=== PATIENT | female | born 1960 | race Caucasian/White ===

== ENCOUNTER 2018-03-17 14:35 | Emergency (ER) | payer OTHER ==
[2018-03-17 15:26] LABS: Absolute Lymphocytes (CBC) 1.6 K/uL (0.7-4.9); Absolute Monocytes 0.5 K/uL (0.1-1.3); Absolute Neutrophil 3.5 K/uL (1.8-8.0); Basophils % 0.9 % (0-1.3); Eosinophils % 4.5 % (0-4.4); Hematocrit 43.4 % (36.0-45.0); Lymphocytes % 27.3 % (15.3-44.8); MCH 30.1 pg (27.0-35.0); MCV 88.3 fL (80-100); Monocytes % 9.1 % (3.3-12.3); RBC Red Blood Cell Count 4.91 M/uL (3.86-4.86)
--- NOTE | 2018-03-17 15:27 | RAD REPORT ---
EXAM DESCRIPTION: RAD - Chest Single View - 03/17/2018 3:19 pm CLINICAL HISTORY: CHEST PAIN Chest pain. COMPARISON: <Comparisons> FINDINGS: Portable technique limits examination quality. The lungs are grossly clear. The heart is normal in size. No displaced fractures. IMPRESSION: No acute intrathoracic process suspected.
[2018-03-17 15:31] LABS: Protime INR 0.97
[2018-03-17 15:51] LABS: ALT/SGPT 53 U/L (12-78); AST/SGOT 37 U/L (15-37); Albumin 3.9 g/dL (3.4-5.0); Alkaline Phosphatase 62 U/L (45-117); BUN Blood Urea Nitrogen 9 mg/dL (7-18); Bicarbonate 26 mmol/L (21-32); Bilirubin Direct < 0.1 mg/dL (0-0.2); Bilirubin Total 0.2 mg/dL (0.2-1.0); CKMB Creatine Kinase MB < 1.0 ng/mL (0.3-3.6); Creatine Phosphokinase 70 U/L (26-192); Glucose Level 96 mg/dL (74-106); Magnesium 2.2 mg/dL (1.8-2.4); NT PRO-BNP 50 pg/mL (<125); Potassium 3.8 mmol/L (3.5-5.1); Protein, Total 7.5 g/dL (6.4-8.2); Sodium Level 142 mmol/L (136-145)
--- NOTE | 2018-03-17 16:43 | RAD REPORT ---
EXAM DESCRIPTION: VAS - Extrem Venous W Compress Leo - 03/17/2018 4:35 pm CLINICAL HISTORY: PAIN Bilateral leg edema and swelling. COMPARISON: FOOT W OBLIQUES dated 02/04/2011; FOOT W OBLIQUES dated 02/04/2011No comparisons TECHNIQUE: Real-time sonographic interrogation of the left and right lower extremity deep venous sys tems was performed. FINDINGS: Normal compressibility, flow augmentation, phasic flow and spontaneous flow is identified in both the left and right lower extremity deep venous systems. IMPRESSION: No sonographic evidence of left or right lower extremity deep venous thrombosis.
[2018-03-17] MEDS ORDERED: ACETAMINOPHEN 325 MG TABLET ONE (17:51)
--- NOTE | 2018-03-17 18:26 | ER ---
Nurse's Notes [facility] Name: Alejandra Payton Age: 57 yrs Sex: Female : 1960 Arrival Date: 03/17/2018 Time: 14:36 Bed 5 Private MD: Gavin Ulloa C; Vu Mir S Diagnosis: Chest pain, unspecified Presentation: 03/17 14:44 Presenting complaint: Patient states: Chets pain that started 1 hour [employer] while sitting. aj Patient describes pain as continuous radiating to back. Transition of care: patient was not received from another setting of care. Onset of symptoms was March 17, 2018. Risk Assessment: Do you want to hurt yourself or someone else? Patient reports no desire to harm self or others. Initial Sepsis Screen: Does the patient meet any 2 criteria? No. Patient's initial sepsis screen is negative. Does the patient have a suspected source of infection? No. Patient's initial sepsis screen is negative. Care prior to arrival: None. 14:44 Method Of Arrival: Wheelchair 14:44 Acuity: ZE 3 aj Triage Assessment: 14:47 General: Appears in no apparent distress. uncomfortable, Behavior is calm, cooperative, aj appropriate for age. Pain: Complains of pain in chest. Neuro: Level of Consciousness is awake, alert, obeys commands, Oriented to person, place, time, situation, Appropriate for age. Cardiovascular: Reports chest pain. Respiratory: Airway is patent Respiratory effort is even, unlabored, Respiratory pattern is regular, symmetrical. Derm: Skin is intact, is healthy with good turgor, Skin is pink, warm \\T\\ dry. normal. Historical: - Allergies: 14:47 PENICILLINS; aj - Home Meds: 14:47 Protonix 40 mg Oral TbEC 1 tab once daily [Active]; Crestor 5 mg oral tab 1 tab once aj daily [Active]; Toprol XL 50 mg Oral Tb24 1 tab once daily [Active]; Zyrtec 10 mg Oral chew 1 tab once daily [Active]; metformin 500 mg Oral tab 1 tab 2 times per day [Active]; Zoloft 50 mg Oral tab 1 tab once daily [Active]; - PMHx: 14:47 Hyperlipidemia; Hypertension; Diabetes - NIDDM; Depression; aj - PSHx: 14:47 Tummy Tuck; Hysterectomy; back; aj - Immunization history:: Adult Immunizations up to date. - Social history:: Smoking status: Patient/guardian denies using tobacco. - Ebola Screening: : Patient negative for fever greater than or equal to 101.5 degrees Fahrenheit, and additional compatible Ebola Virus Disease symptoms Patient denies exposure to infectious person Patient denies travel to an Ebola-affected area in the 21 days before illness onset No symptoms or risks identified at this time. Screenin:56 Abuse screen: Denies threats or abuse. Denies injuries from another. Nutritional jl7 screening: No deficits noted. Tuberculosis screening: No symptoms or risk factors identified. Fall Risk IV access (20 points). Total Jeffrey Fall Scale indicates No Risk (0-24 pts). Assessment: 14:51 General: Appears in no apparent distress. uncomfortable, Behavior is calm, cooperative, jl7 appropriate for age. Pain: Complains of pain in chest Pain radiates to between shoulders Pain currently is 6 out of 10 on a pain scale. at worst was 8 out of 10 on a pain scale. Quality of pain is described as pressure, Pain began 2 hours ago. Is continuous. Neuro: Level of Consciousness is awake, alert, obeys commands, Oriented to person, place, time, situation. Cardiovascular: Heart tones S1 S2 present Patient's skin is warm and dry. Rhythm is sinus rhythm. Respiratory: Airway is patent Respiratory effort is even, unlabored, Respiratory pattern is regular, symmetrical, Breath sounds are clear bilaterally. Denies shortness of breath. GI: Abdomen is round non-distended, Reports nausea, Patient currently denies diarrhea, vomiting. : No signs and/or symptoms were reported regarding the genitourinary system. EENT: No signs and/or symptoms were reported regarding the EENT system. Derm: Skin is pink, warm \\T\\ dry. petechia noted all over abdomen, pt reports "That's been there for years.". Musculoskeletal: No signs and/or symptoms reported regarding the musculoskeletal system. 16:00 Reassessment: No changes from previously documented assessment. Patient and/or family jl7 updated on plan of care and expected duration. Pain level reassessed. Patient is alert, oriented x 3, equal unlabored respirations, skin warm/dry/pink. 17:00 Reassessment: Patient and/or family updated on plan of care and expected duration. Pain jl7 level reassessed. Patient is alert, oriented x 3, equal unlabored respirations, skin warm/dry/pink. 17:50 Reassessment: Pt c/o of DAVILA, rated 8/10, states "I think it's because I haven't eaten jl7 anything." FSBG 72 at this time. Diet tray given to pt per pt request. Provider notified, see [facility] for orders. Vital Signs: 14:47 BP 173 / 95; Pulse 78; Resp 14; Pulse Ox 99% on R/A; Weight 73.03 kg; Height 5 ft. 5 aj in. (165.10 cm); 14:51 BP 182 / 93; Pulse 63; Resp 16; Pulse Ox 100% ; Pain 6/10; jl7 15:00 Temp 98.9; jl7 16:00 BP 157 / 81; Pulse 60; Resp 16; Pulse Ox 100% ; jl7 17:00 BP 120 / 58; Pulse 65; Resp 16; Pulse Ox 100% ; jl7 17:54 BP 145 / 89; Pulse 78; Resp 16; Pulse Ox 97% ; Pain 8/10; jl7 18:40 Pain 0/10; jl7 14:47 Body Mass Index 26.79 (73.03 kg, 165.10 cm) ED Course: 14:36 Patient arrived in ED. as 14:36 Gavin Ulloa MD is Private Physician. as 14:36 Vu Mir MD is Private Physician. as 14:40 Tunde Moser, MELVA is Primary Nurse. [facility] 14:45 Triage completed. 14:47 Arm band placed on right wrist. Patient placed in an exam room. EKG completed in triage. Results shown to MD. 14:56 Patient has correct armband on for positive identification. Placed in gown. Bed in low jl7 position. Call light in reach. Side rails up X 1. panel monitor on. Pulse ox on. NIBP on. Warm blanket given. 14:56 Initial lab(s) drawn, by me, sent to lab. Inserted saline lock: 20 gauge in left jl7 antecubital area, using aseptic technique. Blood collected. Patient maintains SpO2 saturation greater than 95% on room air. 14:59 John Panda MD is Attending Physician. kdr 15:18 X-ray completed. Portable x-ray completed in exam room. Patient tolerated procedure la2 well. 15:20 XRAY Chest (1 view) In Process Unspecified. EDMS 16:35 US Extremity Venous W Compression Leo In Process Unspecified. EDMS 17:50 Troponin (emerg Dept Use Only) Sent. jl7 18:25 Gavin Ulloa MD is Referral Physician. kdr 18:39 No provider procedures requiring assistance completed. IV discontinued, intact, jl7 bleeding controlled, No redness/swelling at site. Pressure dressing applied. Administered Medications: 17:53 Drug: Tylenol 650 mg Route: PO; jl7 18:40 Follow up: Pain 0/10 Adult; Response: No adverse reaction; Pain is decreased jl7 Point of Care Testing: Blood Glucose: 17:52 Blood Glucose: 72 mg/dL; jl7 Ranges: Outcome: 18:25 Discharge ordered by . kdr 18:39 Discharged to home ambulatory, with family. jl7 18:39 Condition: stable 18:39 Discharge instructions given to patient, family, Instructed on discharge instructions, follow up and referral plans. medication usage, Demonstrated understanding of instructions, follow-up care, medications, Prescriptions given X 2. 18:40 Patient left the ED. jl7 Signatures: Dispatcher [employer] EDMS Janie Alegre, RN John Weston MD MD kdr Ema Almaguer Jahala, MELVA RN jl7 Mandi Thomson la2
--- NOTE | 2018-03-17 18:27 | EDPHYS ---
Physician Documentation [facility] Name: Alejandra Payton Age: 57 yrs Sex: Female : 1960 Arrival Date: 03/17/2018 Time: 14:36 Bed 5 Private MD: Gavin Ulloa C; Vu Mir S ED Physician John Panda HPI: 03/17 18:40 This 57 yrs old Female presents to ER via Wheelchair with complaints of Chest kdr Pain. 18:40 The patient or guardian reports chest pain that is located primarily in the substernal kdr area, anterior chest wall, bilaterally, chest diffusely. Onset: suddenly, 1 hour(s) ago. The pain radiates to Associated signs and symptoms: Pertinent positives: dizziness, lightheadedness, nausea, Pertinent negatives: abdominal pain, diaphoresis, shortness of breath, syncope, vomiting. The chest pain is described as a pressure, squeezing. Duration: The patient or guardian reports a single episode, that is still ongoing, but improving. Modifying factors: The symptoms are alleviated by nothing. the symptoms are aggravated by nothing. Severity of pain: At its worst the pain was moderate in the emergency department the pain is unchanged. The patient has not experienced similar symptoms in the past. The patient has not recently seen a physician. The patient has also been having intermittent leg cramps and pain in her calf r/l. Historical: - Allergies: 14:47 PENICILLINS; aj - Home Meds: 14:47 Protonix 40 mg Oral TbEC 1 tab once daily [Active]; Crestor 5 mg oral tab 1 tab once aj daily [Active]; Toprol XL 50 mg Oral Tb24 1 tab once daily [Active]; Zyrtec 10 mg Oral chew 1 tab once daily [Active]; metformin 500 mg Oral tab 1 tab 2 times per day [Active]; Zoloft 50 mg Oral tab 1 tab once daily [Active]; - PMHx: 14:47 Hyperlipidemia; Hypertension; Diabetes - NIDDM; Depression; aj - PSHx: 14:47 Tummy Tuck; Hysterectomy; back; aj - Immunization history:: Adult Immunizations up to date. - Social history:: Smoking status: Patient/guardian denies using tobacco. - Ebola Screening: : Patient negative for fever greater than or equal to 101.5 degrees Fahrenheit, and additional compatible Ebola Virus Disease symptoms Patient denies exposure to infectious person Patient denies travel to an Ebola-affected area in the 21 days before illness onset No symptoms or risks identified at this time. ROS: 18:40 Constitutional: Negative for fever, chills, and weight loss, Eyes: Negative for injury, kdr pain, redness, and discharge, Neck: Negative for injury, pain, and swelling, Respiratory: Negative for shortness of breath, cough, wheezing, and pleuritic chest pain, Abdomen/GI: Negative for abdominal pain, nausea, vomiting, diarrhea, and constipation, Back: Negative for injury and pain, : Negative for injury, bleeding, discharge, and swelling, MS/Extremity: Negative for injury and deformity, Skin: Negative for injury, rash, and discoloration, Neuro: Negative for headache, weakness, numbness, tingling, and seizure activity. Psych: Negative for depression, anxiety, suicide ideation, homicidal ideation, and hallucinations, Allergy/Immunology: Negative for hives, rash, and allergies, Endocrine: Negative for neck swelling, polydipsia, polyuria, polyphagia, and marked weight changes, Hematologic/Lymphatic: Negative for swollen nodes, abnormal bleeding, and unusual bruising. 18:40 Cardiovascular: Positive for chest pain, Negative for edema, orthopnea, palpitations, paroxysmal nocturnal dyspnea, acute changes. 18:40 MS/extremity: Positive for pain, bilateral leg cramps. Exam: 18:40 Constitutional: This is a well developed, well nourished patient who is awake, alert, kdr and in no acute distress. Head/Face: Normocephalic, atraumatic. Eyes: Pupils equal round and reactive to light, extra-ocular motions intact. Lids and lashes normal. Conjunctiva and sclera are non-icteric and not injected. Cornea within normal limits. Periorbital areas with no swelling, redness, or edema. Neck: Trachea midline, no thyromegaly or masses palpated, and no cervical lymphadenopathy. Supple, full range of motion without nuchal rigidity, or vertebral point tenderness. No Meningismus. Chest/axilla: Normal chest wall appearance and motion. Nontender with no deformity. No lesions are appreciated. Cardiovascular: Regular rate and rhythm with a normal S1 and S2. No gallops, murmurs, or rubs. Normal PMI, no JVD. No pulse deficits. Respiratory: Lungs have equal breath sounds bilaterally, clear to auscultation and percussion. No rales, rhonchi or wheezes noted. No increased work of breathing, no retractions or nasal flaring. Abdomen/GI: Soft, non-tender, with normal bowel sounds. No distension or tympany. No guarding or rebound. No evidence of tenderness throughout. Back: No spinal tenderness. No costovertebral tenderness. Full range of motion. Skin: Warm, dry with normal turgor. Normal color with no rashes, no lesions, and no evidence of cellulitis. MS/ Extremity: Pulses equal, no cyanosis. Neurovascular intact. Full, normal range of motion. Neuro: Awake and alert, GCS 15, oriented to person, place, time, and situation. Cranial nerves II-XII grossly intact. Motor strength 5/5 in all extremities. Sensory grossly intact. Cerebellar exam normal. Normal gait. Psych: Awake, alert, with orientation to person, place and time. Behavior, mood, and affect are within normal limits. Vital Signs: 14:47 BP 173 / 95; Pulse 78; Resp 14; Pulse Ox 99% on R/A; Weight 73.03 kg; Height 5 ft. 5 aj in. (165.10 cm); 14:51 BP 182 / 93; Pulse 63; Resp 16; Pulse Ox 100% ; Pain 6/10; jl7 15:00 Temp 98.9; jl7 16:00 BP 157 / 81; Pulse 60; Resp 16; Pulse Ox 100% ; jl7 17:00 BP 120 / 58; Pulse 65; Resp 16; Pulse Ox 100% ; jl7 17:54 BP 145 / 89; Pulse 78; Resp 16; Pulse Ox 97% ; Pain 8/10; jl7 18:40 Pain 0/10; jl7 14:47 Body Mass Index 26.79 (73.03 kg, 165.10 cm) aj MDM: 18:25 Patient medically screened. kdr 18:40 Data reviewed: vital signs, nurses notes, lab test result(s), radiologic studies. kdr Counseling: I had a detailed discussion with the patient and/or guardian regarding: the historical points, exam findings, and any diagnostic results supporting the discharge/admit diagnosis, lab results, radiology results, the need for outpatient follow up. 03/17 15:05 Order name: Basic Metabolic Panel; Complete Time: 17:30 [facility] 03/17 15:05 Order name: CBC with Diff; Complete Time: 17:30 [facility] 03/17 15:05 Order name: Ckmb; Complete Time: 17:30 [facility] 03/17 15:05 Order name: CPK; Complete Time: 17:30 [facility] 03/17 15:05 Order name: LFT's; Complete Time: 17:30 [facility] 03/17 15:05 Order name: Magnesium; Complete Time: 17:30 [facility] 03/17 15:05 Order name: NT PRO-BNP; Complete Time: 17:30 [facility] 03/17 15:05 Order name: PT-INR; Complete Time: 17:30 [facility] 03/17 15:05 Order name: Ptt, Activated; Complete Time: 17:30 [facility] 03/17 15:05 Order name: Troponin (emerg Dept Use Only); Complete Time: 17:30 [facility] 03/17 15:05 Order name: XRAY Chest (1 view); Complete Time: 17:30 [facility] 03/17 15:25 Order name: DD; Complete Time: 17:30 [facility] 03/17 15:25 Order name: US Extremity Venous W Compression Leo; Complete Time: 17: [facility] 03/17 17:31 Order name: Troponin (emerg Dept Use Only); Complete Time: 18:25 [facility] 03/17 15:05 Order name: EKG; Complete Time: 15:05 [facility] 03/17 15:05 Order name: Cardiac monitoring; Complete Time: 17:06 [facility] 03/17 15:05 Order name: EKG - Nurse/Tech; Complete Time: 17:06 [facility] 03/17 15:05 Order name: IV Saline Lock; Complete Time: 17: [facility] 03/17 15:05 Order name: Labs collected and sent; Complete Time: 17:06 [facility] 03/17 15:05 Order name: O2 Per Protocol; Complete Time: 17: [facility] 03/17 15:05 Order name: O2 Sat Monitoring; Complete Time: 17:06 Administered Medications: 17:53 Drug: Tylenol 650 mg Route: PO; [facility] 18:40 Follow up: Pain 0/10 Adult; Response: No adverse reaction; Pain is decreased Point of Care Testing: Blood Glucose: 17:52 Blood Glucose: 72 mg/dL; jl7 Ranges: Critical Glucose Levels:Adult <50 mg/dl or >400 mg/dl <40 mg/dl or >180 mg/dl Disposition: 03/17/18 18:25 Discharged to Home. Impression: Chest pain, unspecified. - Condition is Stable. - Discharge Instructions: Nonspecific Chest Pain, [id number]. - Prescriptions for Ibuprofen 800 mg Oral Tablet - take 1 tablet by ORAL route every 8-12 hours As needed take with food; 20 tablet. Pepcid 20 mg Oral Tablet - take 1 tablet by ORAL route every 12 hours for 10 days; 20 tablet. - Medication Reconciliation Form, Thank You Letter form. - Follow up: Gavin Ulloa MD; When: 2 - 3 days; Reason: If symptoms return, Further diagnostic work-up, Recheck today's complaints, Continuance of care, Re-evaluation by your physician. - Problem is new. - Symptoms have improved. Signatures: Dispatcher [employer] EDME Janie Alegre RN RN John Hare MD MD [facility] Tunde Moser RN RN jl7 Corrections: (The following items were deleted from the chart) 18:40 18:25 03/17/2018 18:25 Discharged to Home. Impression: Chest pain, unspecified. jl7 Condition is Stable. Forms are Medication Reconciliation Form, Thank You Letter, Antibiotic Education, Prescription Opioid Use. Follow up: Gavin Ulloa; When: 2 - 3 days; Reason: If symptoms return, Further diagnostic work-up, Recheck today's complaints, Continuance of care, Re-evaluation by your physician. Problem is new. Symptoms have improved. kdr
--- NOTE | 2018-03-18 09:33 | EKG ---
Test Date: 2018-03-17 Test Time: 14:49:47 Advisor Consultant: ELIAS MEASUREMENT RESULTS: Intervals: Rate: 55 ME: 172 QRSD: 78 QT: 450 QTc: 430 [place]: P: 42 ME: 172 QRS: -1 T: 53 INTERPRETIVE STATEMENTS: Sinus bradycardia Possible Left atrial enlargement Borderline ECG Compared to ECG 09/21/2015 14:36:26 Sinus rhythm no longer present Electronically Signed On 03-18-18 09:32:04 CDT by Lawrence Huerta
== END 2018-03-17 18:40 | disposition home or self-care (01) ==
LOC: ER 14:35
DX: R07.9 Chest pain, unspecified (principal); I10 Essential (primary) hypertension; E11.9 Type 2 diabetes mellitus without complications; E78.5 Hyperlipidemia, unspecified; Z88.0 Allergy status to penicillin
CPT/HCPCS: 36415; 71045; 80048; 80076; 82550; 82553; 82962; 83735; 83880; 84484; 85025; 85379; 85610; 85730; 93005; 93970; 99285